=== PATIENT | male | born 1990 | race Two or more races ===

== ENCOUNTER 2022-09-09 14:42 | Emergency (ER) | payer SELFPAY ==
[~2022-09-09] VITALS: Ht 177.8 cm; Wt 72.6 kg
--- NOTE | 2022-09-09 15:45 | NUR ---
PT TAKEN TO CHAIR 2, NO CHANGE IN CONDITION
[2022-09-09] MEDS ORDERED: ACETAMINOPHEN ES 500 MG TABLET PO ONE (16:30)
[2022-09-09] MEDS ORDERED: IBUPROFEN 600 MG TABLET PO ONE (16:30)
[2022-09-09] MEDS ORDERED: HYDR-3972 PO (17:34)
[2022-09-09] MEDS ORDERED: IBUP-1953 PO (17:34)
[2022-09-09] MEDS ORDERED: ONDA4TAB5 PO (17:35)
[2022-09-09 17:44] VITALS: BP 129/91
== END 2022-09-09 17:46 | disposition home or self-care (01) ==
LOC: ER 14:45
DX: S22.41XA Multiple fractures of ribs, right side, initial encounter for closed fracture (principal); S00.93XA Contusion of unspecified part of head, initial encounter; S46.911A Strain of unspecified muscle, fascia and tendon at shoulder and upper arm level, right arm, initial encounter; V49.9XXA Car occupant (driver) (passenger) injured in unspecified traffic accident, initial encounter; Y93.89 Activity, other specified; Y92.89 Other specified places as the place of occurrence of the external cause; Y99.8 Other external cause status
CPT/HCPCS: 70450-TC; 71045-TC; 72125-TC; 73030-TC